=== PATIENT | male | born 2000 | race Caucasian/White ===

== ENCOUNTER 2025-08-12 14:02 | Emergency (ER) | payer MEDICAID ==
[~2025-08-12] VITALS: Ht 172.7 cm; Wt 77.1 kg
[2025-08-12 14:03] VITALS: BP 126/76
[2025-08-12] MEDS ORDERED: LIDOCAINE HCL 2% 20 ML VIAL ONE (15:12)
[2025-08-12] MEDS: LIDOCAINE HCL 2% 20 ML VIAL TP ONE (15:26)
[2025-08-12 16:06] VITALS: BP 125/77; TEMP 98.2; O2SAT 98
== END 2025-08-12 16:07 | disposition home or self-care (01) ==
LOC: ER 14:06
DX: L03.012 Cellulitis of left finger (principal)
CPT/HCPCS: 99283; 10060; 87070; J3490; 87077; A4606; A4663